=== PATIENT | female | born 1980 | race Caucasian/White ===

== ENCOUNTER 2020-08-04 10:33 | Emergency (ER) | payer OTHER ==
[~2020-08-04] VITALS: Ht 167.6 cm; Wt 56.7 kg
[2020-08-04 10:44] VITALS: BP 121/82
--- NOTE | 2020-08-04 10:59 | PHYS DOC ---
Past History Past Medical History: Other Additional Past Medical Histor: Seasonal allergies Past Surgical History: Other Additional Past Surgical Histo: herina Alcohol Use: Occasionally General Adult EDM: Chief Complaint: OTHER COMPLAINTS HPI: HPI: 40 yo F presents to the ed with c/o left nipple pain just after her nipple piercing ripped out while cetching on a baking sheet, was baking cinnamon rolls. Tetanus updated 2019 (has immunization record with her). Denies any assault. Has an IUD, not , no plans for future or breast feeding. Is worried that she will have a "gapping nipple," concerned for cosmetic appearance. Review of Systems: Review of Systems: Constitutional: Denies fever or chills Eyes: Denies change in visual acuity HENT: Denies nasal congestion or sore throat Respiratory: Denies cough or shortness of breath Cardiovascular: Denies chest pain GI: Denies abdominal pain, nausea, vomiting, or diarrhea Musculoskeletal: Denies back pain or joint pain Integument: Denies rash Neurologic: Denies headache, focal weakness or sensory changes Allergies: Allergies: Allergies Coded Allergies Type Severity Reaction Last Updated Verified No Known Drug Allergies 08/04/20 No Physical Exam: PE: Constitutional: Well developed, well nourished, no acute distress, non-toxic appearance. [] HENT: Normocephalic, atraumatic, Eyes: EOMI, conjunctiva normal, Neck: Normal range of motion, supple, Skin: Warm, dry, left nipple with horizontal non-gapping laceration with 2mm skin flap at 3o'clock position, some bleeding Back: No tenderness, no CVA tenderness. [] Extremities: No tenderness, no cyanosis, no clubbing, ROM intact, no edema. [] Neurologic: Alert and oriented X 3, normal motor function, normal sensory function, no focal deficits noted. [] Psychologic: Affect normal, judgement normal, mood normal. [] Current Patient Data: Vital Signs: Vital Signs Date Time Temp Pulse Resp B/P (MAP) Pulse Ox O2 Delivery O2 Flow Rate FiO2 08/04/20 10:44 98.1 67 14 121/82 (95) 98 Room Air EKG: EKG: [] Radiology/Procedures: Radiology/Procedures: [] Course & Med Decision Making: Course & Med Decision Making Pertinent Labs and Imaging studies reviewed. (See chart for details) Concern for left nipple laceration after nipple piercing was removed accidentally. Patient's tetanus is up-to-date. Wound was irrigated with nasal saline, topical antibiotic ointment and sterile dressings placed. I discussed with plastic surgery at , Dr. Kalani De La Vega, the patient can be discharged to emergency department and plastic repair will be done in the emergency department. Patient stable and agrees with this plan. Life-threatening processes were considered but are low suspicion at this time, given history and physical exam. Pt was educated on all prescription medications and adverse effects. All patient's questions were answered and pt was stable at time of discharge. I spoken with the patient and her caregivers. I explained the patient's condition, diagnoses and treatment plan based on the information available to me at this time. I have answered the patient and her caregiver's questions and addressed any concerns. The patient and her caregivers have a good understanding of patient's diagnosis, condition and treatment plan as can be expected at this point. Vital signs have been stable. Patient's condition is stable and appropriate for discharge from the emergency department. Patient will pursue further outpatient evaluation with primary care physician or other designated or consulting physician as outlined in the discharge instructions. The patient and/or caregivers are agreeable to this plan of care and follow-up instructions have been explained in detail. The patient and/or caregivers have received these instructions in written form and have expressed an understanding of the discharge instructions. The patient and/or caregivers are aware that any significant change of condition or worsening of symptoms should prompt immediate return to this or the closest emergency department or call to 911. Julee Disclaimer: Julee Disclaimer: This electronic medical record was generated, in whole or in part, using a voice recognition dictation system. Departure Departure: Impression: Primary Impression: Nipple pain Additional Impression: Nipple problem Disposition: HOME/RESIDENCE PRIOR TO ADM Condition: STABLE Referrals: PCP,NO (PCP) Patient Instructions: Laceration Care, Adult, Wound Care, [id number] Additional Instructions: Plastic Surgery-Dr. Kalani De La Vega Emergency Department Address: [address] [place] [id number] Justification of Admission: Justification of Admission: Justification of Admission Dx: N/A BARBARA JONES DO Aug 04, 2020 10:59
[2020-08-04] MEDS ORDERED: NEOMY/BACITR/POLYMYXIN OINT PACKET. TP ONE (11:15)
== END 2020-08-04 11:25 | disposition home or self-care (01) ==
LOC: ER 10:33
DX: S21.012A Laceration without foreign body of left breast, initial encounter (principal); N64.4 Mastodynia; X58.XXXA Exposure to other specified factors, initial encounter; Y93.89 Activity, other specified; Y92.89 Other specified places as the place of occurrence of the external cause; Y99.8 Other external cause status
CPT/HCPCS: 99282